=== PATIENT | female | born 1935 | race Two or more races ===

== ENCOUNTER 2022-11-19 20:38 | Inpatient (IN) | payer OTHER ==
[~2022-11-19] VITALS: Ht 157.5 cm; Wt 70.6 kg
[2022-11-19 21:27] LABS: Basophils # (auto) 0 10 ^3/uL (0-0.2); Basophils % (auto) 0.5 % (0.0-2.0); Eosinophils # (auto) 0.3 10 ^3/uL (0-0.8); Eosinophils % (auto) 3.8 % (0.0-7.0); Hematocrit 29.8 % (36.0-46.0); Hemoglobin 9.6 g/dL (12.2-16.2); Lymphocytes # (auto) 1.1 10 ^3/uL (0.4-5.4); Lymphocytes % (auto) 14.1 % (10.0-50.0); Mean Corpuscular Hemoglobin 28.1 pg (28.0-32.0); Mean Corpuscular Hgb Conc. 32.1 g/dL (32.0-36.0); Mean Corpuscular Volume 87.6 fL (80.0-100.0); Monocytes # (auto) 0.6 10 ^3/uL (0-1.3); Neutrophils # (auto) 5.9 10 ^3/uL (1.6-8.6); Neutrophils % (auto) 73.6 % (37.0-80.0); Nucleated Red Blood Cells % 0.1 %; Red Cell Distribution Width 15.2 % (11.8-14.3); White Blood Cell 8.1 10^3/uL (4.4-10.8)
[2022-11-19 21:40] VITALS: PULSE 76; RESP 18; O2SAT 100
[2022-11-19 21:40] LABS: Albumin 2.7 g/dL (3.4-5.0); Calcium 8.8 mg/dL (8.5-10.1); Potassium 4.8 mmol/L (3.5-5.1)
[2022-11-19 21:43] LABS: BUN/Creatinine Ratio 21.7 (10.0-20.0); Bilirubin, Total 0.3 mg/dL (0.2-1.0); Total Protein 7.8 g/dL (6.4-8.2)
[2022-11-19 21:50] LABS: INR 1.08 (0.9-1.15); Prothrombin Time 11.3 sec (9.3-11.8)
[2022-11-19] MEDS ORDERED: SODIUM CHLORIDE 0.9% 1,000 ML IV ONE (23:00)
[2022-11-19] MEDS ORDERED: ONDANSETRON HCL 4 MG/2 ML VIAL IV ONE (23:00)
[2022-11-19] MEDS ORDERED: ACETAMINOPHEN 325 MG TAB PO PRN (23:00)
[2022-11-19] MEDS ORDERED: ONDANSETRON HCL 4 MG/2 ML VIAL IV PRN (23:00)
[2022-11-19] MEDS ORDERED: MORPHINE SULFATE 4 MG/ML SYR/VIAL IV ONE (23:00)
[2022-11-20] MEDS: MORPHINE SULFATE INJ 2 MG/ml SYRG IV PRN ×3 (03:14→20:08)
[2022-11-20 06:45] LABS: Potassium 5.2 mmol/L (3.5-5.1)
[2022-11-20 06:51] LABS: Basophils # (auto) 0 10 ^3/uL (0-0.2); Eosinophils # (auto) 0 10 ^3/uL (0-0.8); Nucleated Red Blood Cells % 0.1 %
[2022-11-20 06:53] LABS: Basophils % (auto) 0.4 % (0.0-2.0); Eosinophils % (auto) 0.1 % (0.0-7.0); Hematocrit 25.3 % (36.0-46.0); Hemoglobin 8.1 g/dL (12.2-16.2); Lymphocytes % (auto) 11.6 % (10.0-50.0); Mean Corpuscular Hemoglobin 27.7 pg (28.0-32.0); Mean Corpuscular Hgb Conc. 31.9 g/dL (32.0-36.0); Monocytes # (auto) 0.6 10 ^3/uL (0-1.3); Monocytes % (auto) 7.7 % (0.0-12.0); Neutrophils # (auto) 6.6 10 ^3/uL (1.6-8.6); Neutrophils % (auto) 80.2 % (37.0-80.0); Red Blood Cells 2.91 10^6/uL (4.0-5.20); White Blood Cell 8.3 10^3/uL (4.4-10.8)
[2022-11-20 06:54] LABS: Albumin 2.4 g/dL (3.4-5.0); Bilirubin, Total 0.4 mg/dL (0.2-1.0); Calcium 8.2 mg/dL (8.5-10.1); Total Protein 6.9 g/dL (6.4-8.2)
[2022-11-20] MEDS: LEVOTHYROXINE SODIUM 50 MCG TAB PO SCH ×2 (07:31→10:57)
[2022-11-20] MEDS ORDERED: DEXTROSE (50%) 50ML SYRG IV ONE (07:45)
[2022-11-20] MEDS ORDERED: InsuLIN REG 1unit/0.01ml Soln (100units/ml) IV ONE (07:45)
[2022-11-20] MEDS ORDERED: SODIUM ZIRCONIUM CYCL 10 GM PAK PO ONE (07:45)
[2022-11-20 08:00] VITALS: PULSE 62; RESP 14; O2SAT 100
[2022-11-20] MEDS ORDERED: levoFLOXacin 250MG 50 ML IV SCH (10:00)
[2022-11-20] MEDS ORDERED: FUROSEMIDE 40 MG TAB PO SCH (10:00)
[2022-11-20] MEDS: CARVEDILOL 3.125 MG TAB PO SCH ×2 (10:49→23:05)
[2022-11-20] MEDS: PANTOPRAZOLE 40 MG TAB PO SCH (10:50)
[2022-11-20] MEDS ORDERED: SODIUM CHLORIDE 0.9% 1,000 ML IV SCH (11:00)
[2022-11-20 12:05] LABS: Alcohol, Urine < 3.0 mg/dL (0-10); Amphetamine Screen, Urine NEGATIVE (NEGATIVE); Barbiturate Scree,Urine NEGATIVE (NEGATIVE); Benzodiazephine Screen, Urine NEGATIVE (NEGATIVE); Cannabinoid Screen, Urine NEGATIVE (NEGATIVE); Cocaine Screen, Urine NEGATIVE (NEGATIVE); Opiate Scree,Urine POSITIVE (NEGATIVE); Phencyclidine Screen, Urine NEGATIVE (NEGATIVE)
[2022-11-20 12:11] LABS: Urine Bacteria NONE SEEN /hpf (None Seen); Urine Blood Negative /uL (Negative); Urine Clarity Clear (Clear); Urine Color Yellow (Yellow); Urine Hyaline Cast FEW /lpf (0 - 2); Urine Mucus FEW (None Seen); Urine Protein, UAD TRACE (Negative); Urine Urobilinogen Normal (Negative); Urine WBC 2 /hpf (0 - 5)
[2022-11-20] MEDS ORDERED: cefTRIAXone 1GM/50ML D5W 50 ML IV ONE (15:30)
[2022-11-20] MEDS ORDERED: CYANOCOBALAMIN (B-12) 1000 MCG/1 ML VIAL IM ONE (15:30)
[2022-11-20] MEDS: ERGOCALCIFEROL 50,000 UNIT(1.25MG) CAP PO SCH (17:00)
[2022-11-20 19:45] VITALS: PULSE 73; RESP 15; O2SAT 98
[2022-11-20 22:24] VITALS: BP 102/46; PULSE 72; PULSE 84; RESP 18; RESP 20; TEMP 98.6; O2SAT 93; O2SAT 98
[2022-11-20] MEDS ORDERED: RAMI5CAP40 PO (22:46)
[2022-11-20] MEDS ORDERED: FURO40TA4 PO (22:46)
[2022-11-20] MEDS ORDERED: ATOR10TA52 PO (22:46)
[2022-11-20] MEDS ORDERED: CITA-73 PO (22:46)
[2022-11-20] MEDS ORDERED: LEVO150T10 PO (22:46)
[2022-11-20] MEDS ORDERED: DONE1TAB88 PO (22:46)
[2022-11-20] MEDS ORDERED: MELO-335 PO (22:46)
[2022-11-20] MEDS ORDERED: PREG-109 PO (22:46)
[2022-11-20] MEDS: DONEPEZIL HYDROCHLORIDE 5 MG TAB PO SCH (22:59)
[2022-11-20] MEDS: ATORVASTATIN 20 MG TAB PO SCH (23:06)
[2022-11-20] MEDS: HYDROcodone-ACET 5/325MG TAB PO PRN (23:55)
[2022-11-21] VITALS (7 sets, daily range): BP systolic 110–156; BP diastolic 34–47; PULSE 58–77; RESP 16–20; TEMP 97.4–98.4; O2SAT 94–100
[2022-11-21] MEDS: HYDROcodone-ACET 5/325MG TAB PO PRN (04:23)
[2022-11-21 07:03] LABS: Basophils # (auto) 0 10 ^3/uL (0-0.2); Basophils % (auto) 0.3 % (0.0-2.0); Eosinophils # (auto) 0.1 10 ^3/uL (0-0.8); Hemoglobin 7.8 g/dL (12.2-16.2); Lymphocytes # (auto) 0.9 10 ^3/uL (0.4-5.4); Monocytes # (auto) 0.7 10 ^3/uL (0-1.3)
[2022-11-21 07:06] LABS: Eosinophils % (auto) 0.8 % (0.0-7.0); Hematocrit 24.4 % (36.0-46.0); Mean Corpuscular Hemoglobin 28.2 pg (28.0-32.0); Monocytes % (auto) 9.6 % (0.0-12.0); Neutrophils # (auto) 5.3 10 ^3/uL (1.6-8.6); Neutrophils % (auto) 76.3 % (37.0-80.0); Red Blood Cells 2.78 10^6/uL (4.0-5.20); Red Cell Distribution Width 15.4 % (11.8-14.3)
[2022-11-21 07:17] LABS: Potassium 4.7 mmol/L (3.5-5.1)
[2022-11-21 07:23] LABS: Calcium 8.5 mg/dL (8.5-10.1)
[2022-11-21 08:15] LABS: Cholesterol 110 mg/dL (< 200); Triglycerides 68 mg/dL (< 150)
[2022-11-21 08:17] LABS: HDL Cholesterol 56 mg/dL (40-59); LDL Cholesterol 51 mg/dL (< 100)
[2022-11-21 09:09] LABS: % Iron Saturation 9.8 % (15-50)
[2022-11-21] MEDS: cefTRIAXone 1GM/50ML D5W 50 ML IV SCH (09:42)
[2022-11-21] MEDS: CYANOCOBALAMIN (B-12) 1000 MCG/1 ML VIAL IM SCH (09:42)
[2022-11-21] MEDS: CARVEDILOL 3.125 MG TAB PO SCH ×2 (10:00→22:42)
[2022-11-21] MEDS: PANTOPRAZOLE 40 MG TAB PO SCH (10:00)
[2022-11-21] MEDS ORDERED: PHENYLEPHRINE HCL 10 MG/ML VL IV ONE (14:13)
[2022-11-21] MEDS ORDERED: ePHEDrine SULFATE 50 MG/ML AMP IV ONE (14:13)
[2022-11-21] MEDS: MORPHINE SULFATE INJ 2 MG/ml SYRG IV PRN (14:25)
[2022-11-21] MEDS ORDERED: TETRACAINE 1% INJ 2 ML VIAL IJ ONE (15:48)
[2022-11-21] MEDS ORDERED: ceFAZolin 1GM/50ML 100 ML IV ONE (15:51)
[2022-11-21] MEDS ORDERED: MORPHINE SULF PF 5 MG/10 ML VIAL ONE (16:05)
[2022-11-21] MEDS ORDERED: MIDAZOLAM HCL 2MG/2ML 2ml VIAL (1mg/ml) ONE (16:15)
[2022-11-21] MEDS ORDERED: fentaNYL CITRATE 100 MCG/2 ML VL ONE (16:15)
[2022-11-21] MEDS ORDERED: BUPIVACAINE 0.5% P/F INJ 10 ML VIAL ONE (16:44)
[2022-11-21] MEDS ORDERED: PROPOFOL 10 MG/ML 20 ML IV ONE (18:24)
[2022-11-21] MEDS ORDERED: ONDANSETRON HCL 4 MG/2 ML VIAL IV PRN (18:45)
[2022-11-21] MEDS: DONEPEZIL HYDROCHLORIDE 5 MG TAB PO SCH (22:39)
[2022-11-21] MEDS: ATORVASTATIN 20 MG TAB PO SCH (22:42)
[2022-11-22 05:00] VITALS: BP 102/38; PULSE 64; RESP 19; TEMP 97.2; O2SAT 92
[2022-11-22] MEDS: HYDROcodone-ACET 5/325MG TAB PO PRN (06:25)
[2022-11-22 06:41] LABS: Basophils # (auto) 0 10 ^3/uL (0-0.2); Basophils % (auto) 0.2 % (0.0-2.0); Eosinophils # (auto) 0 10 ^3/uL (0-0.8); Hemoglobin 7.4 g/dL (12.2-16.2); Monocytes # (auto) 0.5 10 ^3/uL (0-1.3); Neutrophils % (auto) 81.7 % (37.0-80.0)
[2022-11-22 06:49] LABS: Eosinophils % (auto) 0.1 % (0.0-7.0); Hematocrit 22.6 % (36.0-46.0); Lymphocytes # (auto) 0.6 10 ^3/uL (0.4-5.4); Mean Corpuscular Hemoglobin 30.1 pg (28.0-32.0); Mean Corpuscular Hgb Conc. 32.7 g/dL (32.0-36.0); Mean Corpuscular Volume 91.9 fL (80.0-100.0); Neutrophils # (auto) 5.2 10 ^3/uL (1.6-8.6); Red Blood Cells 2.46 10^6/uL (4.0-5.20); Red Cell Distribution Width 15.5 % (11.8-14.3); White Blood Cell 6.3 10^3/uL (4.4-10.8)
[2022-11-22 06:57] LABS: Calcium 8.4 mg/dL (8.5-10.1); Magnesium 2.7 mg/dL (1.6-2.6); Potassium 4.7 mmol/L (3.5-5.1)
[2022-11-22 07:03] LABS: Albumin 2.1 g/dL (3.4-5.0); BUN/Creatinine Ratio 37.1 (10.0-20.0); Bilirubin, Total 0.5 mg/dL (0.2-1.0); Total Protein 6.1 g/dL (6.4-8.2)
[2022-11-22] MEDS ORDERED: SODIUM FERR GLUC 62.5MG/5ML 125 MG in SODIUM CHL 0.9% 100 ML IV ONE (08:30)
[2022-11-22 08:43] VITALS: BP 117/53; PULSE 62; RESP 17; TEMP 99.1; O2SAT 100
[2022-11-22] MEDS: CYANOCOBALAMIN (B-12) 1000 MCG/1 ML VIAL IM SCH (09:58)
[2022-11-22] MEDS: cefTRIAXone 1GM/50ML D5W 50 ML IV SCH (09:58)
[2022-11-22] MEDS: PANTOPRAZOLE 40 MG TAB PO SCH (09:58)
[2022-11-22] MEDS: CARVEDILOL 3.125 MG TAB PO SCH ×2 (09:59→22:00)
[2022-11-22] MEDS ORDERED: ENOXAPARIN SOD 40 MG/0.4 ML SYRINGE SC ONE (10:30)
[2022-11-22 13:00] VITALS: BP 125/53; PULSE 59; RESP 19; TEMP 98.7; O2SAT 100
[2022-11-22 17:28] VITALS: BP 131/50; PULSE 57; RESP 18; TEMP 98.3; O2SAT 95
[2022-11-22 20:00] VITALS: PULSE 59; RESP 20; O2SAT 98
[2022-11-22] MEDS: MORPHINE SULFATE INJ 2 MG/ml SYRG IV PRN (20:33)
[2022-11-22 22:00] VITALS: BP_SYST 102; BP_SYST 113; BP_DIAS 43; BP_DIAS 66; PULSE 59; PULSE 91; RESP 18; RESP 20; TEMP 98.2; TEMP 98.5; O2SAT 100; O2SAT 99
[2022-11-22] MEDS: ATORVASTATIN 20 MG TAB PO SCH (22:21)
[2022-11-22] MEDS: DONEPEZIL HYDROCHLORIDE 5 MG TAB PO SCH (22:21)
[2022-11-23 05:00] VITALS: BP 128/55; PULSE 68; RESP 18; TEMP 97.6; O2SAT 96
[2022-11-23] MEDS: LEVOTHYROXINE SODIUM 100 MCG TAB PO SCH (06:03)
[2022-11-23 06:30] LABS: Basophils # (auto) 0 10 ^3/uL (0-0.2); Eosinophils # (auto) 0 10 ^3/uL (0-0.8); Eosinophils % (auto) 0.7 % (0.0-7.0); Hemoglobin 7.1 g/dL (12.2-16.2); Lymphocytes # (auto) 1.2 10 ^3/uL (0.4-5.4); Monocytes # (auto) 0.7 10 ^3/uL (0-1.3); Nucleated Red Blood Cells % 0.2 %
[2022-11-23 06:33] LABS: Basophils % (auto) 0.3 % (0.0-2.0); Hematocrit 21.3 % (36.0-46.0); Lymphocytes % (auto) 19.1 % (10.0-50.0); Mean Corpuscular Hemoglobin 29.3 pg (28.0-32.0); Mean Corpuscular Hgb Conc. 33.2 g/dL (32.0-36.0); Mean Corpuscular Volume 88.1 fL (80.0-100.0); Monocytes % (auto) 11.2 % (0.0-12.0); Neutrophils # (auto) 4.2 10 ^3/uL (1.6-8.6); Neutrophils % (auto) 68.7 % (37.0-80.0); Red Blood Cells 2.41 10^6/uL (4.0-5.20); Red Cell Distribution Width 15.4 % (11.8-14.3); White Blood Cell 6.1 10^3/uL (4.4-10.8)
[2022-11-23 06:52] LABS: Albumin 2.2 g/dL (3.4-5.0); BUN/Creatinine Ratio 39.5 (10.0-20.0); Calcium 8.7 mg/dL (8.5-10.1); Potassium 4.2 mmol/L (3.5-5.1)
[2022-11-23 06:55] LABS: Bilirubin, Total 0.4 mg/dL (0.2-1.0); Total Protein 6.5 g/dL (6.4-8.2)
[2022-11-23 08:00] VITALS: PULSE 62; RESP 20; O2SAT 98
[2022-11-23] MEDS: cefTRIAXone 1GM/50ML D5W 50 ML IV SCH (08:45)
[2022-11-23] MEDS ORDERED: ENOXAPARIN SOD 40 MG/0.4 ML SYRINGE SC SCH (10:00)
[2022-11-23] MEDS: PANTOPRAZOLE 40 MG TAB PO SCH (10:54)
[2022-11-23] MEDS: CYANOCOBALAMIN (B-12) 1000 MCG/1 ML VIAL IM SCH (10:54)
[2022-11-23] MEDS: CITALOPRAM HYDROBR 20 MG TAB PO SCH (10:54)
[2022-11-23] MEDS: CARVEDILOL 3.125 MG TAB PO SCH ×2 (10:55→23:02)
[2022-11-23 20:00] VITALS: PULSE 64; RESP 16; O2SAT 100
[2022-11-23 22:00] VITALS: BP 131/52; PULSE 54; RESP 16; TEMP 97.9; O2SAT 100
[2022-11-23] MEDS: ATORVASTATIN 20 MG TAB PO SCH (23:01)
[2022-11-23] MEDS: DONEPEZIL HYDROCHLORIDE 5 MG TAB PO SCH (23:01)
[2022-11-23] MEDS: HYDROCORTONE 1% TOPICAL CREAM 30 GM TUBE TOP SCH (23:20)
[2022-11-23] MEDS: KETOCONAZOLE 2 % TOPICAL CREAM 15GM TOP SCH (23:20)
[2022-11-24] VITALS (9 sets, daily range): BP systolic 100–151; BP diastolic 40–57; PULSE 46–55; RESP 16–18; TEMP 97.3–97.9; O2SAT 89–100
[2022-11-24] MEDS: HYDROcodone-ACET 5/325MG TAB PO PRN ×4 (00:34→21:52)
[2022-11-24] MEDS: MORPHINE SULFATE INJ 2 MG/ml SYRG IV PRN (00:45)
[2022-11-24] MEDS: LEVOTHYROXINE SODIUM 100 MCG TAB PO SCH (05:55)
[2022-11-24 06:34] LABS: Basophils # (auto) 0 10 ^3/uL (0-0.2); Basophils % (auto) 0.2 % (0.0-2.0); Eosinophils # (auto) 0.1 10 ^3/uL (0-0.8); Monocytes # (auto) 0.7 10 ^3/uL (0-1.3); Nucleated Red Blood Cells % 0.2 %; Red Cell Distribution Width 15.6 % (11.8-14.3)
[2022-11-24 06:37] LABS: Eosinophils % (auto) 1.7 % (0.0-7.0); Hematocrit 19.8 % (36.0-46.0); Lymphocytes # (auto) 1.3 10 ^3/uL (0.4-5.4); Lymphocytes % (auto) 22.9 % (10.0-50.0); Mean Corpuscular Hemoglobin 29.8 pg (28.0-32.0); Mean Corpuscular Hgb Conc. 33.3 g/dL (32.0-36.0); Mean Corpuscular Volume 89.5 fL (80.0-100.0); Monocytes % (auto) 11.7 % (0.0-12.0); Neutrophils # (auto) 3.5 10 ^3/uL (1.6-8.6); Neutrophils % (auto) 63.5 % (37.0-80.0); Red Blood Cells 2.21 10^6/uL (4.0-5.20); White Blood Cell 5.6 10^3/uL (4.4-10.8)
[2022-11-24 06:49] LABS: Potassium 4.2 mmol/L (3.5-5.1)
[2022-11-24 07:00] LABS: BUN/Creatinine Ratio 42.6 (10.0-20.0); Calcium 8.6 mg/dL (8.5-10.1)
[2022-11-24 07:42] LABS: Hemoglobin 6.6 g/dL (12.2-16.2)
[2022-11-24 09:21] LABS: Hypochromia Moderate
[2022-11-24 09:22] LABS: Anisocytosis Moderate
[2022-11-24 09:25] LABS: Platelet Estimate Adequate
[2022-11-24] MEDS: cefTRIAXone 1GM/50ML D5W 50 ML IV SCH (09:33)
[2022-11-24] MEDS: HYDROCORTONE 1% TOPICAL CREAM 30 GM TUBE TOP SCH ×2 (09:33→21:30)
[2022-11-24] MEDS: KETOCONAZOLE 2 % TOPICAL CREAM 15GM TOP SCH ×2 (09:33→21:30)
[2022-11-24] MEDS: PANTOPRAZOLE 40 MG TAB PO SCH (09:34)
[2022-11-24] MEDS: CYANOCOBALAMIN (B-12) 1000 MCG/1 ML VIAL IM SCH (09:34)
[2022-11-24] MEDS: CITALOPRAM HYDROBR 20 MG TAB PO SCH (09:34)
[2022-11-24] MEDS: CARVEDILOL 3.125 MG TAB PO SCH ×2 (09:39→21:56)
[2022-11-24] MEDS: DONEPEZIL HYDROCHLORIDE 5 MG TAB PO SCH (21:51)
[2022-11-24] MEDS: ATORVASTATIN 20 MG TAB PO SCH (21:51)
[2022-11-24 22:35] LABS: Basophils # (auto) 0 10 ^3/uL (0-0.2); Basophils % (auto) 0.3 % (0.0-2.0); Eosinophils # (auto) 0.2 10 ^3/uL (0-0.8); Eosinophils % (auto) 2.7 % (0.0-7.0); Hematocrit 26.2 % (36.0-46.0); Hemoglobin 8.6 g/dL (12.2-16.2); Lymphocytes # (auto) 1.5 10 ^3/uL (0.4-5.4); Lymphocytes % (auto) 20.4 % (10.0-50.0); Mean Corpuscular Hgb Conc. 32.8 g/dL (32.0-36.0); Mean Corpuscular Volume 88.4 fL (80.0-100.0); Monocytes # (auto) 0.7 10 ^3/uL (0-1.3); Monocytes % (auto) 9.9 % (0.0-12.0); Neutrophils # (auto) 4.9 10 ^3/uL (1.6-8.6); Neutrophils % (auto) 66.7 % (37.0-80.0); Nucleated Red Blood Cells % 0.2 %; Red Blood Cells 2.96 10^6/uL (4.0-5.20); Red Cell Distribution Width 15.2 % (11.8-14.3); White Blood Cell 7.4 10^3/uL (4.4-10.8)
[2022-11-25 05:00] VITALS: BP 142/66; PULSE 52; RESP 18; TEMP 98.3; O2SAT 97
[2022-11-25] MEDS: LEVOTHYROXINE SODIUM 100 MCG TAB PO SCH (07:02)
[2022-11-25 07:50] LABS: Basophils # (auto) 0 10 ^3/uL (0-0.2); Basophils % (auto) 0.7 % (0.0-2.0); Eosinophils # (auto) 0.4 10 ^3/uL (0-0.8); Eosinophils % (auto) 5.8 % (0.0-7.0); Hematocrit 25.4 % (36.0-46.0); Hemoglobin 8.5 g/dL (12.2-16.2); Lymphocytes # (auto) 1.6 10 ^3/uL (0.4-5.4); Lymphocytes % (auto) 24.7 % (10.0-50.0); Mean Corpuscular Hemoglobin 29.8 pg (28.0-32.0); Mean Corpuscular Hgb Conc. 33.6 g/dL (32.0-36.0); Mean Corpuscular Volume 88.8 fL (80.0-100.0); Monocytes # (auto) 0.6 10 ^3/uL (0-1.3); Monocytes % (auto) 9.7 % (0.0-12.0); Neutrophils # (auto) 3.8 10 ^3/uL (1.6-8.6); Neutrophils % (auto) 59.1 % (37.0-80.0); Red Blood Cells 2.86 10^6/uL (4.0-5.20); Red Cell Distribution Width 14.9 % (11.8-14.3); White Blood Cell 6.5 10^3/uL (4.4-10.8)
[2022-11-25 08:17] LABS: Potassium 4.1 mmol/L (3.5-5.1)
[2022-11-25 08:24] LABS: Albumin 1.9 g/dL (3.4-5.0); BUN/Creatinine Ratio 37.1 (10.0-20.0); Bilirubin, Total 0.8 mg/dL (0.2-1.0); Calcium 8.4 mg/dL (8.5-10.1); Total Protein 5.9 g/dL (6.4-8.2)
[2022-11-25 09:00] VITALS: BP 151/68; PULSE 51; RESP 18; TEMP 97.8; O2SAT 98
[2022-11-25] MEDS: CITALOPRAM HYDROBR 20 MG TAB PO SCH (09:25)
[2022-11-25] MEDS: PANTOPRAZOLE 40 MG TAB PO SCH (09:25)
[2022-11-25] MEDS: CYANOCOBALAMIN (B-12) 1000 MCG/1 ML VIAL IM SCH (09:26)
[2022-11-25] MEDS: cefTRIAXone 1GM/50ML D5W 50 ML IV SCH (09:26)
[2022-11-25] MEDS: HYDROCORTONE 1% TOPICAL CREAM 30 GM TUBE TOP SCH ×2 (09:29→21:29)
[2022-11-25] MEDS: CARVEDILOL 3.125 MG TAB PO SCH ×2 (09:29→21:28)
[2022-11-25] MEDS: KETOCONAZOLE 2 % TOPICAL CREAM 15GM TOP SCH ×2 (09:29→21:29)
[2022-11-25 11:54] LABS: Anisocytosis Slight
[2022-11-25 11:55] LABS: Platelet Estimate Adequate
[2022-11-25] MEDS: HYDROcodone-ACET 5/325MG TAB PO PRN ×2 (12:50→20:27)
[2022-11-25 13:00] VITALS: BP 144/73; PULSE 52; RESP 18; TEMP 97.7; O2SAT 97
[2022-11-25 17:00] VITALS: BP 136/64; PULSE 59; RESP 18; TEMP 97.9; O2SAT 97
[2022-11-25 20:00] VITALS: PULSE 59; RESP 19; O2SAT 93
[2022-11-25] MEDS: ATORVASTATIN 20 MG TAB PO SCH (21:25)
[2022-11-25] MEDS: DONEPEZIL HYDROCHLORIDE 5 MG TAB PO SCH (21:25)
[2022-11-25 21:30] VITALS: BP 136/54; PULSE 59; RESP 19; TEMP 97.9; O2SAT 95
[2022-11-26] VITALS (7 sets, daily range): BP systolic 107–150; BP diastolic 58–64; PULSE 53–58; RESP 17–18; TEMP 97.8–98.7; O2SAT 93–98
[2022-11-26] MEDS: LEVOTHYROXINE SODIUM 100 MCG TAB PO SCH (06:51)
[2022-11-26 07:13] LABS: Basophils # (auto) 0 10 ^3/uL (0-0.2); Basophils % (auto) 0.6 % (0.0-2.0); Eosinophils # (auto) 0.4 10 ^3/uL (0-0.8); Eosinophils % (auto) 6.1 % (0.0-7.0); Hematocrit 27.7 % (36.0-46.0); Hemoglobin 9.2 g/dL (12.2-16.2); Lymphocytes # (auto) 1.4 10 ^3/uL (0.4-5.4); Lymphocytes % (auto) 18.7 % (10.0-50.0); Mean Corpuscular Hemoglobin 29.7 pg (28.0-32.0); Mean Corpuscular Volume 89.8 fL (80.0-100.0); Monocytes # (auto) 0.7 10 ^3/uL (0-1.3); Monocytes % (auto) 9.6 % (0.0-12.0); Neutrophils # (auto) 4.7 10 ^3/uL (1.6-8.6); Nucleated Red Blood Cells % 0.4 %; Red Blood Cells 3.09 10^6/uL (4.0-5.20); Red Cell Distribution Width 15.3 % (11.8-14.3); White Blood Cell 7.3 10^3/uL (4.4-10.8)
[2022-11-26 07:20] LABS: Albumin 2.1 g/dL (3.4-5.0); Calcium 8.3 mg/dL (8.5-10.1)
[2022-11-26 07:24] LABS: BUN/Creatinine Ratio 30.6 (10.0-20.0); Total Protein 5.9 g/dL (6.4-8.2)
[2022-11-26] MEDS: cefTRIAXone 1GM/50ML D5W 50 ML IV SCH (09:28)
[2022-11-26] MEDS: CARVEDILOL 3.125 MG TAB PO SCH ×2 (09:29→22:00)
[2022-11-26] MEDS: CYANOCOBALAMIN (B-12) 1000 MCG/1 ML VIAL IM SCH (09:29)
[2022-11-26] MEDS: CITALOPRAM HYDROBR 20 MG TAB PO SCH (09:29)
[2022-11-26] MEDS: PANTOPRAZOLE 40 MG TAB PO SCH (09:29)
[2022-11-26] MEDS: HYDROcodone-ACET 5/325MG TAB PO PRN ×3 (09:31→22:41)
[2022-11-26] MEDS: HYDROCORTONE 1% TOPICAL CREAM 30 GM TUBE TOP SCH ×2 (09:32→22:47)
[2022-11-26] MEDS: KETOCONAZOLE 2 % TOPICAL CREAM 15GM TOP SCH ×2 (09:32→22:47)
[2022-11-26] MEDS ORDERED: ENOXAPARIN SOD 40 MG/0.4 ML SYRINGE SC ONE (16:45)
[2022-11-26] MEDS: ATORVASTATIN 20 MG TAB PO SCH (22:37)
[2022-11-26] MEDS: DONEPEZIL HYDROCHLORIDE 5 MG TAB PO SCH (22:37)
[2022-11-27] MEDS: HYDROcodone-ACET 5/325MG TAB PO PRN (01:51)
[2022-11-27 05:00] VITALS: BP 148/62; PULSE 52; RESP 18; TEMP 98; O2SAT 92
[2022-11-27] MEDS: LEVOTHYROXINE SODIUM 100 MCG TAB PO SCH (06:57)
[2022-11-27 07:26] LABS: Basophils # (auto) 0 10 ^3/uL (0-0.2); Basophils % (auto) 0.4 % (0.0-2.0); Eosinophils # (auto) 0.4 10 ^3/uL (0-0.8); Eosinophils % (auto) 5.4 % (0.0-7.0); Hematocrit 28.9 % (36.0-46.0); Hemoglobin 9.5 g/dL (12.2-16.2); Lymphocytes # (auto) 1.4 10 ^3/uL (0.4-5.4); Mean Corpuscular Hemoglobin 28.9 pg (28.0-32.0); Mean Corpuscular Hgb Conc. 32.9 g/dL (32.0-36.0); Mean Corpuscular Volume 87.9 fL (80.0-100.0); Monocytes # (auto) 0.7 10 ^3/uL (0-1.3); Neutrophils # (auto) 4.5 10 ^3/uL (1.6-8.6); Neutrophils % (auto) 64.2 % (37.0-80.0); Nucleated Red Blood Cells % 0.3 %; Red Blood Cells 3.29 10^6/uL (4.0-5.20); Red Cell Distribution Width 15.7 % (11.8-14.3)
[2022-11-27 08:00] VITALS: PULSE 71; RESP 20; O2SAT 93
[2022-11-27 08:15] LABS: Potassium 3.9 mmol/L (3.5-5.1)
[2022-11-27 08:27] LABS: Albumin 2.2 g/dL (3.4-5.0); BUN/Creatinine Ratio 29.2 (10.0-20.0); Calcium 8.3 mg/dL (8.5-10.1)
[2022-11-27 09:00] VITALS: BP 146/58; PULSE 71; RESP 20; TEMP 98.7; O2SAT 93
[2022-11-27] MEDS ORDERED: PANTOPRAZOLE 40 MG/10 ML VIAL INJ IV SCH (10:00)
[2022-11-27] MEDS ORDERED: ENOXAPARIN SOD 40 MG/0.4 ML SYRINGE SC SCH (10:00)
[2022-11-27] MEDS: CITALOPRAM HYDROBR 20 MG TAB PO SCH (11:37)
[2022-11-27] MEDS: CARVEDILOL 3.125 MG TAB PO SCH (11:37)
[2022-11-27] MEDS: CYANOCOBALAMIN (B-12) 1000 MCG/1 ML VIAL IM SCH (11:39)
[2022-11-27] MEDS: cefTRIAXone 1GM/50ML D5W 50 ML IV SCH (11:39)
[2022-11-27] MEDS: KETOCONAZOLE 2 % TOPICAL CREAM 15GM TOP SCH (11:40)
[2022-11-27] MEDS: HYDROCORTONE 1% TOPICAL CREAM 30 GM TUBE TOP SCH (11:40)
[2022-11-27 13:00] VITALS: BP 156/57; PULSE 65; RESP 18; TEMP 98; O2SAT 93
[2022-11-27] MEDS: ERGOCALCIFEROL 50,000 UNIT(1.25MG) CAP PO SCH (15:30)
[2022-11-27 16:30] VITALS: BP 135/51; PULSE 58; RESP 20; TEMP 98.7; O2SAT 93
[2022-11-27 18:02] VITALS: BP 156/57; PULSE 65; RESP 18; TEMP 98; O2SAT 93
== END 2022-11-27 18:45 | DRG 480 ==
LOC: EDBD 20:38 → ER 20:38 → OVERFLOW 22:56 → TELE-WESTW 11-20 21:26 → WEST WING 11-20 22:55
PROVIDERS: ADMIT Internal Medicine; ATTEND Internal Medicine
PROC: 30233N1 Transfusion of Nonautologous Red Blood Cells into Peripheral Vein, Percutaneous Approach (ICD-10-PCS; 2022-11-21)
PROC: 0QS734Z Reposition Left Upper Femur with Internal Fixation Device, Percutaneous Approach (ICD-10-PCS; principal; 2022-11-21 16:34)
DX: S72.142A Displaced intertrochanteric fracture of left femur, initial encounter for closed fracture (principal); N17.0 Acute kidney failure with tubular necrosis; E46 Unspecified protein-calorie malnutrition; L03.116 Cellulitis of left lower limb; I13.0 Hypertensive heart and chronic kidney disease with heart failure and stage 1 through stage 4 chronic kidney disease, or unspecified chronic kidney disease; I50.32 Chronic diastolic (congestive) heart failure; F03.90 Unspecified dementia, unspecified severity, without behavioral disturbance, psychotic disturbance, mood disturbance, and anxiety; N18.9 Chronic kidney disease, unspecified; E11.40 Type 2 diabetes mellitus with diabetic neuropathy, unspecified; E78.5 Hyperlipidemia, unspecified; I25.10 Atherosclerotic heart disease of native coronary artery without angina pectoris; W18.39XA Other fall on same level, initial encounter; E03.9 Hypothyroidism, unspecified; E53.8 Deficiency of other specified B group vitamins; D64.9 Anemia, unspecified; E11.22 Type 2 diabetes mellitus with diabetic chronic kidney disease; Z88.0 Allergy status to penicillin; Y93.89 Activity, other specified; Y92.89 Other specified places as the place of occurrence of the external cause; Y99.8 Other external cause status; Z95.1 Presence of aortocoronary bypass graft; Z68.28 Body mass index [BMI] 28.0-28.9, adult
CPT/HCPCS: 36415; 71045; 73502; 76000; 80048; 80053; 80061; 80307; 81001; 82270; 82306; 82607; 82962; 83036; 83540; 83550; 83735; 83880; 84443; 84484; 85025; 85610; 85730; 86850; 86900; 86901; 86920; 87205; 93005; 93306; 93925; 93970; 96361; 96365; 96367; 96375; 97110; 97116; 97163; 97530; C9113; G0378; J0690; J0696; J1815; J2250; J2405; J2704; J3490

== ENCOUNTER 2023-08-01 09:02 | Inpatient (IN) | payer OTHER ==
[~2023-08-01] VITALS: Ht 152.4 cm; Wt 60.5 kg
[~2023-08-01 09:02] MED LIST: ATOR10TA52 PO; CITA-73 PO; DONE1TAB88 PO; FURO40TA4 PO; LEVO150T10 PO; MELO15TA29 PO; PREG75CA90 PO; RAMI5CAP40 PO
[2023-08-01 09:31] LABS: Basophils # (auto) 0 10 ^3/uL (0-0.2); Basophils % (auto) 0.7 % (0.0-2.0); Eosinophils # (auto) 0.3 10 ^3/uL (0-0.8); Eosinophils % (auto) 4.3 % (0.0-7.0); Hemoglobin 9.7 g/dL (12.2-16.2); Lymphocytes # (auto) 1.6 10 ^3/uL (0.4-5.4); Lymphocytes % (auto) 24.6 % (10.0-50.0); Mean Corpuscular Hemoglobin 27.4 pg (28.0-32.0); Mean Corpuscular Hgb Conc. 31.2 g/dL (32.0-36.0); Mean Corpuscular Volume 88.1 fL (80.0-100.0); Monocytes # (auto) 0.5 10 ^3/uL (0-1.3); Monocytes % (auto) 8.4 % (0.0-12.0); Nucleated Red Blood Cells % 0.1 %; Red Blood Cells 3.52 10^6/uL (4.0-5.20); Red Cell Distribution Width 15.3 % (11.8-14.3); White Blood Cell 6.5 10^3/uL (4.4-10.8)
[2023-08-01 09:51] LABS: Anion Gap 9 (5-15); Carbon Dioxide 24 mmol/L (20-30); Chloride 105 mmol/L (98-107); Potassium 4.4 mmol/L (3.5-5.1); Sodium 138 mmol/L (136-145)
[2023-08-01 09:52] LABS: Calcium 9.3 mg/dL (8.5-10.1)
[2023-08-01 09:57] LABS: BUN/Creatinine Ratio 19.7 (10.0-20.0); Blood Urea Nitrogen 25 mg/dL (9-23); Glucose 111 mg/dL (74-106)
[2023-08-01] MEDS: ONDANSETRON HCL 4 MG/2 ML VIAL IV ONE (10:17)
[2023-08-01] MEDS: MORPHINE SULFATE 4 MG/ML SYR/VIAL IV ONE (10:18)
[2023-08-01 10:20] VITALS: PULSE 71; RESP 14; O2SAT 95
[2023-08-01] MEDS: MORPHINE SULFATE INJ 2 MG/ml SYRG IV ONE (11:36)
[2023-08-01 12:20] LABS: Urine Bacteria FEW /hpf (None Seen); Urine Blood 2+ /uL (Negative); Urine Clarity Clear (Clear); Urine Color Light-Yellow (Yellow); Urine Hyaline Cast FEW /lpf (0 - 2); Urine Protein, UAD TRACE (Negative); Urine Specific Gravity 1.013 (1.001-1.035); Urine Urobilinogen Normal (Negative); Urine WBC 1 /hpf (0 - 5)
[2023-08-01] MEDS ORDERED: DOCUSATE SOD 100 MG CAP PO PRN (16:00)
[2023-08-01] MEDS ORDERED: DEXTROSE (50%) 50ML SYRG IV PRN (16:00)
[2023-08-01] MEDS: levoFLOXacin 500MG 100 ML IV ONE (16:30)
[2023-08-01] MEDS: SODIUM CHLORIDE 0.9% 1,000 ML IV SCH (16:30)
[2023-08-01 16:34] LABS: % Iron Saturation 19.7 % (15-50)
[2023-08-01 16:39] LABS: INR 1.05 (0.9-1.15)
[2023-08-01 17:25] LABS: Ferritin 171.5 ng/mL (10-291)
[2023-08-01 17:26] LABS: Folate (Folic Acid) 15.07 ng/mL (>5.38)
[2023-08-01] MEDS: InsuLIN REG 1unit/0.01ml Soln (100units/ml) SC SCH (19:15)
[2023-08-01] MEDS: ACCU-CHEK COMFORT CURVE STRIP VI SCH (19:15)
[2023-08-01 19:30] VITALS: PULSE 78; RESP 20; O2SAT 97
[2023-08-01] MEDS: ONDANSETRON HCL 4 MG/2 ML VIAL IV PRN (21:51)
[2023-08-01] MEDS: MORPHINE SULFATE INJ 2 MG/ml SYRG IV PRN (21:53)
[2023-08-01 22:54] VITALS: BP 125/78; PULSE 68; RESP 16; RESP 18; TEMP 98; TEMP 98.6; O2SAT 68; O2SAT 96
[2023-08-02] VITALS (8 sets, daily range): BP systolic 130–150; BP diastolic 52–82; PULSE 65–79; RESP 16–19; TEMP 97.6–98.5; O2SAT 95–100
[2023-08-02 05:59] LABS: Basophils # (auto) 0 10 ^3/uL (0-0.2); Basophils % (auto) 0.4 % (0.0-2.0); Eosinophils # (auto) 0.1 10 ^3/uL (0-0.8); Hematocrit 24.4 % (36.0-46.0); Hemoglobin 7.7 g/dL (12.2-16.2); Lymphocytes # (auto) 1.4 10 ^3/uL (0.4-5.4); Lymphocytes % (auto) 25.6 % (10.0-50.0); Mean Corpuscular Hgb Conc. 31.7 g/dL (32.0-36.0); Mean Corpuscular Volume 88.5 fL (80.0-100.0); Monocytes # (auto) 0.8 10 ^3/uL (0-1.3); Monocytes % (auto) 14.6 % (0.0-12.0); Neutrophils # (auto) 3.1 10 ^3/uL (1.6-8.6); Neutrophils % (auto) 58.4 % (37.0-80.0); Nucleated Red Blood Cells % 0.1 %; Red Blood Cells 2.76 10^6/uL (4.0-5.20); White Blood Cell 5.4 10^3/uL (4.4-10.8)
[2023-08-02 06:36] LABS: Alanine Aminotransferase 11 U/L (7-40); Albumin 3.2 g/dL (3.2-4.8); Alkaline Phosphatase 125 U/L (46-116); Anion Gap 9 (5-15); Aspartate Aminotransferase 23 U/L (13-40); BUN/Creatinine Ratio 20.2 (10.0-20.0); Bilirubin, Total 0.5 mg/dL (0.2-1.0); Blood Urea Nitrogen 25 mg/dL (9-23); Calcium 9.1 mg/dL (8.5-10.1); Carbon Dioxide 24 mmol/L (20-30); Chloride 106 mmol/L (98-107); Glucose 78 mg/dL (74-106); Potassium 4.4 mmol/L (3.5-5.1); Sodium 139 mmol/L (136-145)
[2023-08-02] MEDS: levoFLOXacin 250MG 50 ML IV SCH (09:18)
[2023-08-02] MEDS: ENOXAPARIN SOD 30 MG/0.3 ML SYRINGE SC SCH (09:18)
[2023-08-03] VITALS (8 sets, daily range): BP systolic 105–153; BP diastolic 52–63; PULSE 66–81; RESP 16–24; TEMP 97.8–99.4; O2SAT 93–98
[2023-08-03 13:25] LABS: Basophils # (auto) 0 10 ^3/uL (0-0.2); Basophils % (auto) 0.4 % (0.0-2.0); Eosinophils # (auto) 0 10 ^3/uL (0-0.8); Eosinophils % (auto) 0.5 % (0.0-7.0); Hematocrit 23.5 % (36.0-46.0); Hemoglobin 7.6 g/dL (12.2-16.2); Lymphocytes # (auto) 1.1 10 ^3/uL (0.4-5.4); Lymphocytes % (auto) 20.4 % (10.0-50.0); Mean Corpuscular Hemoglobin 28.4 pg (28.0-32.0); Mean Corpuscular Hgb Conc. 32.4 g/dL (32.0-36.0); Mean Corpuscular Volume 87.6 fL (80.0-100.0); Monocytes # (auto) 0.6 10 ^3/uL (0-1.3); Monocytes % (auto) 10.9 % (0.0-12.0); Neutrophils # (auto) 3.6 10 ^3/uL (1.6-8.6); Neutrophils % (auto) 67.8 % (37.0-80.0); Nucleated Red Blood Cells % 0.1 %; Red Blood Cells 2.68 10^6/uL (4.0-5.20); Red Cell Distribution Width 14.8 % (11.8-14.3); White Blood Cell 5.3 10^3/uL (4.4-10.8)
[2023-08-03] MEDS ORDERED: DONE1TAB88 PO (13:52)
[2023-08-03] MEDS ORDERED: CITA-73 PO (13:52)
[2023-08-03] MEDS ORDERED: PREG75CA PO (13:52)
[2023-08-03] MEDS ORDERED: MELO15TA29 PO (13:52)
[2023-08-03] MEDS ORDERED: FURO40TA4 PO (13:52)
[2023-08-03] MEDS ORDERED: QUET50TA5 PO (13:52)
[2023-08-03] MEDS ORDERED: BUSP10TA90 PO (13:52)
[2023-08-03] MEDS ORDERED: HYDR-3682 PO (13:52)
[2023-08-04] VITALS (14 sets, daily range): BP systolic 109–169; BP diastolic 54–68; PULSE 51–74; RESP 16–20; TEMP 97.8–99.7; O2SAT 91–100
[2023-08-04 10:14] LABS: Basophils # (auto) 0 10 ^3/uL (0-0.2); Basophils % (auto) 0.3 % (0.0-2.0); Eosinophils # (auto) 0 10 ^3/uL (0-0.8); Eosinophils % (auto) 0.2 % (0.0-7.0); Hematocrit 30.1 % (36.0-46.0); Lymphocytes # (auto) 0.8 10 ^3/uL (0.4-5.4); Lymphocytes % (auto) 16.6 % (10.0-50.0); Mean Corpuscular Hemoglobin 28.7 pg (28.0-32.0); Mean Corpuscular Hgb Conc. 33.2 g/dL (32.0-36.0); Mean Corpuscular Volume 86.6 fL (80.0-100.0); Monocytes # (auto) 0.4 10 ^3/uL (0-1.3); Monocytes % (auto) 8.4 % (0.0-12.0); Neutrophils # (auto) 3.7 10 ^3/uL (1.6-8.6); Neutrophils % (auto) 74.5 % (37.0-80.0); Nucleated Red Blood Cells % 0.1 %; Red Blood Cells 3.48 10^6/uL (4.0-5.20)
[2023-08-05 05:00] VITALS: BP 125/59; PULSE 59; RESP 20; TEMP 97.7; O2SAT 98
[2023-08-05 08:00] VITALS: RESP 18; O2SAT 91
[2023-08-05 09:00] VITALS: BP 100/61; PULSE 63; RESP 17; TEMP 97.9; O2SAT 94
[2023-08-05 13:00] VITALS: BP 149/62; PULSE 55; RESP 17; TEMP 97.7; O2SAT 98
== END 2023-08-05 13:33 | disposition short-term general hospital (02) | DRG 534 ==
LOC: ER 09:02 → EDBD 09:02 → OVERFLOW 15:47 → WEST WING 15:55
PROVIDERS: ADMIT Nurse Practitioner Family; ATTEND Internal Medicine Geriatric Medicine
PROC: 30233N1 Transfusion of Nonautologous Red Blood Cells into Peripheral Vein, Percutaneous Approach (ICD-10-PCS; principal; 2023-08-04)
DX: S72.402A Unspecified fracture of lower end of left femur, initial encounter for closed fracture (principal); N17.9 Acute kidney failure, unspecified; N30.00 Acute cystitis without hematuria; M97.8XXA Periprosthetic fracture around other internal prosthetic joint, initial encounter; E11.65 Type 2 diabetes mellitus with hyperglycemia; E11.22 Type 2 diabetes mellitus with diabetic chronic kidney disease; N18.32 Chronic kidney disease, stage 3b; E78.5 Hyperlipidemia, unspecified; I45.10 Unspecified right bundle-branch block; F03.90 Unspecified dementia, unspecified severity, without behavioral disturbance, psychotic disturbance, mood disturbance, and anxiety; D64.9 Anemia, unspecified; R62.7 Adult failure to thrive; L89.529 Pressure ulcer of left ankle, unspecified stage; L89.519 Pressure ulcer of right ankle, unspecified stage; I77.819 Aortic ectasia, unspecified site; I25.10 Atherosclerotic heart disease of native coronary artery without angina pectoris; I12.9 Hypertensive chronic kidney disease with stage 1 through stage 4 chronic kidney disease, or unspecified chronic kidney disease; Z99.3 Dependence on wheelchair; Z68.26 Body mass index [BMI] 26.0-26.9, adult; Z83.3 Family history of diabetes mellitus; Z82.49 Family history of ischemic heart disease and other diseases of the circulatory system; Z88.0 Allergy status to penicillin; Z79.4 Long term (current) use of insulin; Z95.1 Presence of aortocoronary bypass graft; Z74.01 Bed confinement status; W18.39XA Other fall on same level, initial encounter; Y93.89 Activity, other specified; Y92.89 Other specified places as the place of occurrence of the external cause; Y99.8 Other external cause status
CPT/HCPCS: 36415; 71045; 72170; 73560; 80048; 80053; 81001; 82607; 82728; 82746; 82962; 83540; 83550; 83615; 84484; 85025; 85045; 85610; 86850; 86900; 86901; 86920; 87086; 93005; 93306; 96365; 96375; G0378; J1815; J1956; J2405